=== PATIENT | male | born 1980 | race Caucasian/White ===

== ENCOUNTER 2018-07-07 11:46 | Emergency (ER) | payer OTHER ==
[2018-07-07] MEDS ORDERED: HYDROcodone/Acetaminophen 10/325 mg Tablet ONE (12:02)
--- NOTE | 2018-07-07 14:11 | RAD ---
3 VIEWS LEFT WRIST: Date: 07/07/18 HISTORY: Left wrist injury. FINDINGS: There is a fracture involving the styloid process of the distal radius with intraarticular extension of the fracture. No additional fracture is seen and there is no dislocation. Subcutaneous soft tissue swelling is seen at the lateral and volar aspect of the wrist and distal forearm. IMPRESSION: 1. Acute fracture radial styloid process, with evidence of intraarticular extension. There is slight separation of fracture fragments without displacement. 2. Subcutaneous soft tissue swelling left wrist. POS: [facility]
== END 2018-07-07 12:54 | disposition home or self-care (01) ==
LOC: NAV ERS 11:46
DX: S52.572A Other intraarticular fracture of lower end of left radius, initial encounter for closed fracture (principal); S52.515A Nondisplaced fracture of left radial styloid process, initial encounter for closed fracture; B20 Human immunodeficiency virus [HIV] disease; F17.290 Nicotine dependence, other tobacco product, uncomplicated; Z79.899 Other long term (current) drug therapy; W19.XXXA Unspecified fall, initial encounter
CPT/HCPCS: 29125

== ENCOUNTER 2019-08-03 13:45 | Outpatient (CLI) | payer OTHER ==
--- NOTE | 2019-08-03 16:18 | ULT ---
TESTICULAR ULTRASOUND: History: Testicular mass, right sided tenderness. FINDINGS: Real-time imaging of the right and left testes were performed. Right testicle measures 4.2 and the le ft testicle 4.1 cm in size. No testicular masses are demonstrated. No evidence of hydrocele. Right epididymal region appears unremarkable. There is a complex 2 x 3 mm left epididymal cyst. DOPPLER EVALUATION WITH SPECTRAL ANALYSIS: Normal flow is shown to both testes. IMPRESSION: Essentially unremarkable testicular ultrasound. Small left epididymal cyst noted. POS: [facility]
== END 2019-08-03 13:46 | disposition home or self-care (01) ==
LOC: NAV ULT 13:45
PROVIDERS: ATTEND Nurse Practitioner Adult Health
DX: N50.89 Other specified disorders of the male genital organs (principal); N50.3 Cyst of epididymis
CPT/HCPCS: 76870; 93976